=== PATIENT | male | born 1955 | race Caucasian/White ===

== ENCOUNTER 2019-10-04 06:25 | Emergency (ER) | payer OTHER ==
[~2019-10-04] VITALS: Ht 175.3 cm; Wt 95.3 kg
[~2019-10-04 06:25] MED LIST: AMOX1TAB12 PO; FLOVENT 110MCG7.9 GM IH; MEDROL4 MG PO; NAPR500T14 PO; PERCOCET 5/321 UDTAB PO; XOPENEX0.63 MG/3 IH; ZITHROMAX500 MG PO
[2019-10-04] MEDS ORDERED: TUSNEL LIQUID178 ML PO (11:22)
[2019-10-04] MEDS ORDERED: OSEL75CA PO (11:22)
[2019-10-04] MEDS ORDERED: DOLOGEN CAPLET1 EACH PO (11:22)
[2019-10-04] MEDS ORDERED: BUTALB-ACETAMI1 EACH PO (12:49)
== END 2019-10-04 13:14 | disposition home or self-care (01) ==
LOC: ER 06:25
DX: R51 Headache (principal)